=== PATIENT | female | born 1950 | race Caucasian/White ===

== ENCOUNTER 2020-02-05 09:34 | Emergency (ER) | payer MEDICARE, MEDICAID ==
[~2020-02-05] VITALS: Ht 162.6 cm; Wt 61.0 kg
[2020-02-05 10:36] LABS: BASOPHILS % 0.6 % (0.0-2.0); EOSINOPHILS % 0.2 % (0.0-5.0); HEMATOCRIT. 39.8 % (36.0-48.0); HEMOGLOBIN. 13.3 g/dL (12.0-16.0); LYMPHOCYTES % 29.5 % (20.0-50.0); MEAN CORPUSCULAR HEMOGLOBIN 30.5 pg (28.0-32.0); MEAN CORPUSCULAR VOLUME 91.2 fL (81.0-99.0); MEAN PLATELET VOLUME 9.9 fl (7.4-10.4); MONOCYTES % 7.3 % (2.0-8.0); NEUTROPHILS % 62.4 % (40.0-76.0); PLATELET 214 x1000/uL (130-400); RED BLOOD CELL COUNT 4.37 mill/uL (4.2-5.4); RED CELL DISTRIBUTION WIDTH 16.4 % (11.6-14.6)
[2020-02-05 10:43] LABS: CHLORIDE 98 mEq/L (98-107)
[2020-02-05 10:50] LABS: INR 0.9; PROTHROMBIN TIME 9.9 sec (9.6-11.0)
[2020-02-05] MEDS ORDERED: ASPI-1497 MT (11:37)
[2020-02-05] MEDS ORDERED: PANT40TA4 MT (11:37)
[2020-02-05] MEDS ORDERED: SEVE800T8 MT (11:37)
[2020-02-05] MEDS ORDERED: FOLI1TAB87 MT (11:37)
[2020-02-05] MEDS ORDERED: AMLO5TAB88 MT (11:37)
[2020-02-05] MEDS ORDERED: METO-539 MT (11:37)
[2020-02-05] MEDS ORDERED: LISI-604 MT (11:37)
[2020-02-05] MEDS ORDERED: ROSU40TA MT (11:37)
[2020-02-05] MEDS ORDERED: TICA90TA MT (11:37)
[2020-02-05] MEDS ORDERED: INSU100I28 SQ (11:40)
[2020-02-05] MEDS ORDERED: INSU100C6 SQ (11:40)
[2020-02-05 15:30] LABS: BASOPHILS % 0.9 % (0.0-2.0); EOSINOPHILS % 0.3 % (0.0-5.0); HEMATOCRIT. 38.8 % (36.0-48.0); HEMOGLOBIN. 12.7 g/dL (12.0-16.0); LYMPHOCYTES % 30.8 % (20.0-50.0); MEAN CORPUSCULAR HEMOGLOBIN 29.7 pg (28.0-32.0); MEAN CORPUSCULAR VOLUME 90.8 fL (81.0-99.0); MEAN PLATELET VOLUME 9.8 fl (7.4-10.4); MONOCYTES % 8.4 % (2.0-8.0); NEUTROPHILS % 59.6 % (40.0-76.0); PLATELET 211 x1000/uL (130-400); RED BLOOD CELL COUNT 4.27 mill/uL (4.2-5.4); RED CELL DISTRIBUTION WIDTH 16.3 % (11.6-14.6)
[2020-02-05] MEDS ORDERED: FAMOTIDINE 20MG TABLET PO ONE (17:30)
[2020-02-05] MEDS ORDERED: MAGNESIUM/ALUMINUM HYDROXIDE/SIMETHICONE 30ML UDC PO ONE (17:30)
[2020-02-05 18:00] VITALS: BP 150/55
== END 2020-02-05 18:44 | disposition short-term general hospital (02) ==
LOC: ER 10:09
DX: T82.838A Hemorrhage due to vascular prosthetic devices, implants and grafts, initial encounter (principal); Y82.8 Other medical devices associated with adverse incidents; Y92.018 Other place in single-family (private) house as the place of occurrence of the external cause; I12.0 Hypertensive chronic kidney disease with stage 5 chronic kidney disease or end stage renal disease; E11.22 Type 2 diabetes mellitus with diabetic chronic kidney disease; N18.6 End stage renal disease; I25.2 Old myocardial infarction; M32.9 Systemic lupus erythematosus, unspecified; Z99.2 Dependence on renal dialysis; Z79.4 Long term (current) use of insulin; Z79.899 Other long term (current) drug therapy; Z79.82 Long term (current) use of aspirin
CPT/HCPCS: 36415; 80053; 82962; 85025; 86850; 86900; 93005; 99285

== ENCOUNTER 2022-02-27 20:26 | Inpatient (IN) | payer MEDICARE, MEDICAID ==
[~2022-02-27] VITALS: Ht 157.5 cm; Wt 97.5 kg
[~2022-02-27 20:26] MED LIST: AMLO5TAB88 MT; ASPI-1497 MT; FOLI1TAB87 MT; INSU100C6 SQ; INSU100I28 SQ; LISI20TA31 MT; METO-539 MT; PANT40TA51 MT; ROSU40TA MT; SEVE800T8 MT; TICA90TA MT
[2022-02-27 21:18] LABS: BG CARBOXYHEMOGLOBIN 0.3 % (0.5-1.5); BG DEOXYHEMOGLOBIN 3.4 % (0.0-5.0); BG FRACTION INSPIRED OXYGEN 21; BG HCO3 ACT 31.4 mmol/L (22.0-26.0); BG OXYGEN SATURATION 96.6 % (92.0-98.5); BG OXYHEMOGLOBIN 96.3 % (94.0-97.0); BG PCO2 39.3 mmHg (35.0-45.0); BG PH 7.521 (7.350-7.450); BG PO2 83.4 mmHg (75.0-100.0); BG SAMPLE SITE RIGHT BRACHIAL; BG TOTAL HEMOGLOBIN 9.7 g/dL (12.0-18.0); BG VENT MODE ROOM AIR
[2022-02-27 21:55] LABS: BASOPHILS % 1.1 % (0.0-2.0); EOSINOPHILS % 0.9 % (0.0-5.0); HEMATOCRIT. 28.6 % (36.0-48.0); HEMOGLOBIN. 9.5 g/dL (12.0-16.0); LYMPHOCYTES % 23.6 % (20.0-50.0); MEAN CORPUSCULAR HEMOGLOBIN 30.6 pg (28.0-32.0); MEAN CORPUSCULAR VOLUME 91.7 fL (81.0-99.0); MONOCYTES % 10.7 % (2.0-8.0); NEUTROPHILS % 63.7 % (40.0-76.0); RED BLOOD CELL COUNT 3.12 mill/uL (4.2-5.4)
[2022-02-27 22:03] LABS: CHLORIDE 90 mEq/L (98-107)
[2022-02-27 22:14] LABS: ETHANOL BLOOD < 10 mg/dL
[2022-02-27 22:34] LABS: PLATELET 248 x1000/uL (130-400)
[2022-02-27] MEDS ORDERED: IOHEXOL-350 100 ML BOTTLE ONE (22:48)
[2022-02-27] MEDS ORDERED: HYDROCODONE/ACETAMINOPHEN 5/325MG TABLET PO PRN (23:45)
[2022-02-27] MEDS ORDERED: GUAIFENESIN 200MG/10ML SUGAR FREE UDC PO PRN (23:45)
[2022-02-27] MEDS ORDERED: ACETAMINOPHEN 325MG TABLET PO PRN ×2 (23:45)
[2022-02-27] MEDS ORDERED: NA PHOS,M-B/NA PHOS,DI-BA ENEMA 118ML PR PRN (23:45)
[2022-02-27] MEDS ORDERED: CLONIDINE 0.1MG TABLET PO PRN (23:45)
[2022-02-27] MEDS ORDERED: IPRATROPIUM/ALBUTEROL 0.5-3(2.5)MG/3ML NEB HHN PRN (23:45)
[2022-02-27] MEDS ORDERED: MAGNESIUM/ALUMINUM HYDROXIDE/SIMETHICONE 30ML UDC PO PRN (23:45)
[2022-02-27] MEDS ORDERED: ONDANSETRON HCL 4MG/2ML INJ IV PRN (23:45)
[2022-02-27] MEDS ORDERED: DOCUSATE SODIUM 100MG CAPSULE PO PRN (23:45)
[2022-02-28] MEDS ORDERED: DEXT 5%/0.9% NACL 1,000 ML IV SCH (01:15)
[2022-02-28 03:28] VITALS: BP 142/52
[2022-02-28 04:00] VITALS: BP 157/64
[2022-02-28] MEDS ORDERED: DEXTROSE 50% WATER 50ML SYRINGE IV PRN (07:00)
[2022-02-28] MEDS: BLOOD SUGAR DIAGNOSTIC STRIP TEST SCH ×4 (07:13→20:33)
[2022-02-28 07:14] LABS: BASOPHILS % 0.4 % (0.0-2.0); EOSINOPHILS % 0.1 % (0.0-5.0); HEMATOCRIT. 28.8 % (36.0-48.0); HEMOGLOBIN. 9.7 g/dL (12.0-16.0); LYMPHOCYTES % 16.2 % (20.0-50.0); MEAN CORPUSCULAR HEMOGLOBIN 30.7 pg (28.0-32.0); MEAN CORPUSCULAR VOLUME 91.4 fL (81.0-99.0); MEAN PLATELET VOLUME 9.8 fl (7.4-10.4); MONOCYTES % 4.8 % (2.0-8.0); NEUTROPHILS % 78.5 % (40.0-76.0); PLATELET 299 x1000/uL (130-400); RED BLOOD CELL COUNT 3.15 mill/uL (4.2-5.4); RED CELL DISTRIBUTION WIDTH 15.5 % (11.6-14.6)
[2022-02-28] MEDS: INSULIN LISPRO 100 UNITS/ML SUBCUT SCH ×4 (07:22→20:38)
[2022-02-28 07:36] LABS: CHLORIDE 88 mEq/L (98-107)
[2022-02-28 07:59] LABS: HDL CHOLESTEROL 51 mg/dL (40-59); LDL CHOLESTEROL 54 mg/dL (5-100); T4 FREE 0.84 ng/dL (0.76-1.46)
[2022-02-28 08:12] VITALS: BP 138/58
[2022-02-28] MEDS: CLOPIDOGREL 75MG TABLET PO SCH (08:24)
[2022-02-28] MEDS: ENOXAPARIN 30MG/0.3ML SYR SUBCUT SCH (08:24)
[2022-02-28] MEDS: PANTOPRAZOLE SODIUM 40 MG/VIAL IV SCH (08:25)
[2022-02-28] MEDS: ASPIRIN 81MG EC TABLET PO SCH (08:25)
[2022-02-28 11:33] VITALS: BP 123/50
[2022-02-28 15:53] VITALS: BP 134/50
[2022-02-28] MEDS ORDERED: NALOXONE HCL 0.4MG/ML VIAL IV PRN (17:30)
[2022-02-28 17:52] LABS: CREATINE KINASE 92 IU/L (26-192); CREATINE KINASE MB FRACTION < 1.0 ng/mL (0.5-3.6)
[2022-02-28 20:00] VITALS: BP 143/42
[2022-02-28] MEDS ORDERED: ATORVASTATIN CALCIUM 40MG TABLET PO SCH (21:00)
[2022-03-01] VITALS: BP 144/42
[2022-03-01 00:29] LABS: CREATINE KINASE 99 IU/L (26-192); CREATINE KINASE MB FRACTION < 1.0 ng/mL (0.5-3.6)
[2022-03-01 04:00] VITALS: BP 147/53
[2022-03-01] MEDS: BLOOD SUGAR DIAGNOSTIC STRIP TEST SCH ×2 (05:42→12:35)
[2022-03-01] MEDS: INSULIN LISPRO 100 UNITS/ML SUBCUT SCH ×2 (06:08→12:46)
[2022-03-01 07:41] LABS: BASOPHILS % 0.6 % (0.0-2.0); EOSINOPHILS % 1.6 % (0.0-5.0); HEMATOCRIT. 27.2 % (36.0-48.0); HEMOGLOBIN. 9.1 g/dL (12.0-16.0); LYMPHOCYTES % 36.7 % (20.0-50.0); MEAN CORPUSCULAR VOLUME 92.9 fL (81.0-99.0); MEAN PLATELET VOLUME 9.9 fl (7.4-10.4); MONOCYTES % 7.4 % (2.0-8.0); NEUTROPHILS % 53.7 % (40.0-76.0); PLATELET 244 x1000/uL (130-400); RED BLOOD CELL COUNT 2.93 mill/uL (4.2-5.4); RED CELL DISTRIBUTION WIDTH 15.9 % (11.6-14.6)
[2022-03-01 07:47] LABS: CHLORIDE 93 mEq/L (98-107)
[2022-03-01 08:00] VITALS: BP 140/54
[2022-03-01 08:05] LABS: CREATINE KINASE 100 IU/L (26-192); CREATINE KINASE MB FRACTION < 1.0 ng/mL (0.5-3.6); PHOSPHORUS 4.8 mg/dL (2.5-4.9)
[2022-03-01] MEDS: ASPIRIN 81MG EC TABLET PO SCH (09:29)
[2022-03-01] MEDS: CLOPIDOGREL 75MG TABLET PO SCH (09:29)
[2022-03-01] MEDS: ENOXAPARIN 30MG/0.3ML SYR SUBCUT SCH (09:30)
[2022-03-01] MEDS: PANTOPRAZOLE SODIUM 40 MG/VIAL IV SCH (09:30)
[2022-03-01 12:00] VITALS: BP 142/52
[2022-03-01] MEDS ORDERED: CLOP75TA15 PO (13:26)
[2022-03-01] MEDS ORDERED: ASPI-1497 PO (13:26)
[2022-03-01] MEDS ORDERED: ROSU40TA MT (13:26)
[2022-03-01] MEDS ORDERED: AMLODIPINE 10MG TABLET PO SCH (14:00)
[2022-03-01 14:55] VITALS: BP 142/52
[2022-03-01 16:00] VITALS: BP 148/54
[2022-03-02] MEDS ORDERED: FAMOTIDINE 20MG TABLET PO SCH (09:00)
== END 2022-03-01 17:20 | disposition home health service (06) | DRG 67 ==
LOC: ER 20:43 → EDBEDREQ 21:42 → EDBEDREQTM 21:42 → SUPCPDRO 22:01 → 8WST 22:40 → EDBEDREQ 22:46 → ENRESERV 23:50
PROVIDERS: ADMIT Internal Medicine; ATTEND Internal Medicine
PROC: 5A1D70Z Performance of Urinary Filtration, Intermittent, Less than 6 Hours Per Day (ICD-10-PCS; principal; 2022-03-01)
DX: I65.21 Occlusion and stenosis of right carotid artery (principal); N18.6 End stage renal disease; D69.3 Immune thrombocytopenic purpura; E87.1 Hypo-osmolality and hyponatremia; I12.0 Hypertensive chronic kidney disease with stage 5 chronic kidney disease or end stage renal disease; I65.02 Occlusion and stenosis of left vertebral artery; G45.9 Transient cerebral ischemic attack, unspecified; E78.5 Hyperlipidemia, unspecified; I25.10 Atherosclerotic heart disease of native coronary artery without angina pectoris; E11.22 Type 2 diabetes mellitus with diabetic chronic kidney disease; E87.5 Hyperkalemia; D72.829 Elevated white blood cell count, unspecified; D63.8 Anemia in other chronic diseases classified elsewhere; Z90.81 Acquired absence of spleen; Z99.2 Dependence on renal dialysis; Z88.8 Allergy status to other drugs, medicaments and biological substances; Z79.899 Other long term (current) drug therapy; I25.2 Old myocardial infarction; Z79.4 Long term (current) use of insulin; Z79.02 Long term (current) use of antithrombotics/antiplatelets; Z79.82 Long term (current) use of aspirin; Z83.3 Family history of diabetes mellitus; Z95.5 Presence of coronary angioplasty implant and graft
CPT/HCPCS: 36415; 36600; 70496; 70498; 70551; 71045; 80048; 80053; 80061; 80320; 82375; 82550; 82553; 82805; 82962; 83036; 83735; 83880; 84100; 84439; 84443; 84484; 85025; 85379; 93005; 93306; 93970; 99285; C9113; J1650; J1815; Q9967; G0480

== ENCOUNTER 2022-11-28 05:38 | Emergency (ER) | payer MEDICARE, MEDICAID ==
[~2022-11-28] VITALS: Ht 162.6 cm; Wt 85.0 kg
[~2022-11-28 05:38] MED LIST changes: -ASPI-1497 MT; +ASPI-1497 PO; +CLOP75TA15 PO; -TICA90TA MT
[2022-11-28 05:41] VITALS: BP 186/65; PULSE 71; RESP 18; TEMP 98.3; O2SAT 99
[2022-11-28] MEDS ORDERED: DIPHENHYDRAMINE 50MG/ML VIAL IV ONE (06:00)
[2022-11-28 06:04] LABS: BASOPHILS % 1.3 % (0.0-2.0); EOSINOPHILS % 1.1 % (0.0-5.0); HEMATOCRIT. 36.7 % (36.0-48.0); HEMOGLOBIN. 11.8 g/dL (12.0-16.0); LYMPHOCYTES % 40.7 % (20.0-50.0); MEAN CORPUSCULAR HEMOGLOBIN 28.2 pg (28.0-32.0); MEAN CORPUSCULAR VOLUME 87.5 fL (81.0-99.0); MEAN PLATELET VOLUME 9.7 fl (7.4-10.4); MONOCYTES % 11.2 % (2.0-8.0); NEUTROPHILS % 45.7 % (40.0-76.0); PLATELET 240 x1000/uL (130-400); RED BLOOD CELL COUNT 4.19 mill/uL (4.2-5.4); RED CELL DISTRIBUTION WIDTH 18.2 % (11.6-14.6)
[2022-11-28 06:12] LABS: CHLORIDE 91 mEq/L (98-107)
[2022-11-28] MEDS: SODIUM CHLORIDE 0.9% 250 ML IV ONE ×2 (07:24→08:09)
[2022-11-28] MEDS: METOCLOPRAMIDE HCL 10MG/2ML VIAL IV ONE ×2 (07:24→08:09)
[2022-11-28] MEDS: KETOROLAC 30MG/ML VIAL IV STA ×2 (07:24→08:09)
[2022-11-28] MEDS ORDERED: DIPHENHYDRAMINE 50MG/ML VIAL IV NR (07:47)
[2022-11-28] MEDS ORDERED: METOCLOPRAMIDE HCL 10MG/2ML VIAL IV NR (07:48)
== END 2022-11-28 11:32 | disposition home or self-care (01) ==
LOC: ER 05:38
DX: G43.909 Migraine, unspecified, not intractable, without status migrainosus (principal); E11.9 Type 2 diabetes mellitus without complications; I10 Essential (primary) hypertension; Z88.6 Allergy status to analgesic agent; Z79.899 Other long term (current) drug therapy
CPT/HCPCS: 99285; 96374; 70450; 96361; 96375; 80053; 85025; 36415; J1200; J2765; J7030